=== PATIENT | male | born 1960 | race Asian ===

== ENCOUNTER 2022-06-29 00:51 | Inpatient (IN) | payer OTHER ==
[2022-06-29 02:19] LABS: EPI CELLS 3 /uL (0-25.1); HYALINE CASTS 0 /uL (0-3.1); URINE APPEARANCE CLEAR; URINE BACTERIA 2 /uL (0-1359); URINE BILIRUBIN NEGATIVE (NEGATIVE); URINE COLOR YELLOW; URINE GLUCOSE (UA) 3+ (NEGATIVE); URINE KETONE NEGATIVE (NEGATIVE); URINE LEUK ESTERASE NEGATIVE (NEGATIVE); URINE NITRITE NEGATIVE (NEGATIVE); URINE PROTEIN NEGATIVE (NEGATIVE); URINE RBC 4 /uL (0-23.9); URINE UROBILINOGEN 0.2 mg/dL (0.2-1.0); URINE WBC 2 /uL (0-25.8)
[2022-06-29] MEDS ORDERED: ACETAMINOPHEN 500 MG TABLET (FP) PO ONE (03:05)
[2022-06-29] MEDS ORDERED: ACETAMINOPHEN 325 MG TABLET (FP) ONE (03:15)
[2022-06-29 03:41] LABS: BASO % 0.4 % (0-2.0); EOS % 0.7 % (0-4.5); HEMATOCRIT 43.7 % (35.4-49); HEMOGLOBIN 15.2 GM/dL (11.7-16.9); LYMPH % 15.9 % (8-40); MCH 31.2 pg (25.7-33.7); MCHC 34.7 g/dl (32.0-35.9); MEAN CELL VOLUME 89.9 fl (80-96); MEAN PLT VOLUME 9.4 fl (7.5-11.1); MONO % 9.3 % (3.8-10.2); NEUT % 73.7 % (42.8-82.8); PLATELET COUNT 205 10^3/uL (134-434); RBC 4.87 M/mm3 (4.00-5.60); RDW 13.2 % (11.9-15.9); WHITE BLOOD COUNT 9.9 K/mm3 (4.0-10.0)
[2022-06-29 04:08] LABS: CALCIUM 9.6 mg/dL (8.5-10.1)
[2022-06-29 04:12] LABS: CREATININE 1.8 mg/dL (0.55-1.3)
[2022-06-29 04:14] LABS: TOT PROT 7.5 g/dl (6.4-8.2)
[2022-06-29] MEDS ORDERED: CEFTRIAXONE 1 GM in DEXTROSE 5%-WATER - 50 ML IVPB ONE (04:19)
[2022-06-29] MEDS ORDERED: CEFTRIAXONE 1 GM/50 ML BAG ONE (04:34)
[2022-06-29] MEDS ORDERED: morphine CARPU-JECT 2 MG/1 ML DISP.SYRIN IVPUSH ONE (04:47)
[2022-06-29] MEDS ORDERED: SODIUM CHLORIDE 0.9% 500 ML INFUS.BAG IV ONE (04:50)
[2022-06-29] MEDS ORDERED: TAMSULOSIN HCL 0.4 MG CAP PO ONE (09:08)
[2022-06-29] MEDS ORDERED: TAMSULOSIN HCL 0.4 MG CAP ONE (09:53)
[2022-06-29] MEDS: SODIUM CHLORIDE 1,000 ML IV SCH (09:58)
[2022-06-29] MEDS ORDERED: ACETAMINOPHEN 325 MG TABLET (FP) PO ONE (13:30)
[2022-06-29] MEDS ORDERED: morphine SULFATE 4 MG/ML VIAL IVPUSH ONE (13:52)
[2022-06-29] MEDS: TAMSULOSIN HCL 0.4 MG CAP PO SCH (16:52)
[2022-06-29] MEDS ORDERED: ACETAMINOPHEN 325 MG TABLET (FP) PO PRN (17:00)
[2022-06-29] MEDS ORDERED: ACETAMINOPHEN 1000 MG/100 ML BAG IVPB PRN (19:00)
[2022-06-29] MEDS: ROSUVASTATIN CA 10 MG TABLET PO SCH (22:17)
[2022-06-30 08:51] LABS: BASO % 0.2 % (0-2.0); EOS % 0.3 % (0-4.5); HEMATOCRIT 33.5 % (35.4-49); HEMOGLOBIN 11.9 GM/dL (11.7-16.9); LYMPH % 14.8 % (8-40); MCH 31.7 pg (25.7-33.7); MCHC 35.4 g/dl (32.0-35.9); MEAN CELL VOLUME 89.6 fl (80-96); MONO % 9.8 % (3.8-10.2); NEUT % 74.9 % (42.8-82.8); PLATELET COUNT 151 10^3/uL (134-434); RBC 3.74 M/mm3 (4.00-5.60); RDW 12.8 % (11.9-15.9); WHITE BLOOD COUNT 8.7 K/mm3 (4.0-10.0)
[2022-06-30 09:16] LABS: BLOOD UREA NITROGEN 16.5 mg/dL (7-18)
[2022-06-30 09:20] LABS: CREATININE 1.3 mg/dL (0.55-1.3)
[2022-06-30 09:21] LABS: BILIRUBIN,TOTAL 1.3 mg/dL (0.2-1)
[2022-06-30 09:28] LABS: ALBUMIN 2.9 g/dl (3.4-5.0); CALCIUM 7.7 mg/dL (8.5-10.1)
[2022-06-30] MEDS: TAMSULOSIN HCL 0.4 MG CAP PO SCH (09:39)
[2022-06-30] MEDS: SODIUM CHLORIDE 1,000 ML IV SCH ×2 (09:48→12:09)
[2022-06-30] MEDS ORDERED: morphine SULFATE 4 MG/ML VIAL IM PRN (14:49)
[2022-06-30] MEDS ORDERED: morphine SULFATE 4 MG/ML VIAL IVPUSH ONE (19:00)
[2022-06-30] MEDS: DOCUSATE SODIUM 100 MG CAPSULE (FP) PO SCH (21:56)
[2022-06-30] MEDS: ROSUVASTATIN CA 10 MG TABLET PO SCH (21:56)
[2022-07-01] MEDS: SODIUM CHLORIDE 1,000 ML IV SCH ×2 (03:45→16:49)
[2022-07-01] MEDS: TAMSULOSIN HCL 0.4 MG CAP PO SCH (09:40)
[2022-07-01] MEDS: DOCUSATE SODIUM 100 MG CAPSULE (FP) PO SCH ×2 (09:40→21:34)
[2022-07-01 10:06] LABS: EPI CELLS 1 /uL (0-25.1); HYALINE CASTS 0 /uL (0-3.1); URINE APPEARANCE CLOUDY; URINE BACTERIA 3 /uL (0-1359); URINE BILIRUBIN NEGATIVE (NEGATIVE); URINE COLOR YELLOW; URINE GLUCOSE (UA) 3+ (NEGATIVE); URINE KETONE 1+ (NEGATIVE); URINE LEUK ESTERASE NEGATIVE (NEGATIVE); URINE NITRITE NEGATIVE (NEGATIVE); URINE PROTEIN TRACE (NEGATIVE); URINE RBC 96 /uL (0-23.9); URINE UROBILINOGEN 0.2 mg/dL (0.2-1.0); URINE WBC 4 /uL (0-25.8)
[2022-07-01] MEDS: morphine SULFATE 4 MG/ML VIAL IVPUSH PRN ×2 (10:46→16:47)
[2022-07-01 10:56] LABS: YEAST NONE SEEN (NEGATIVE)
[2022-07-01 10:57] LABS: URINE CRYSTALS 20-25 /hpf
[2022-07-01 15:18] VITALS: BMI 26.0
[2022-07-01 17:30] LABS: CALCIUM 8.5 mg/dL (8.5-10.1)
[2022-07-01 17:31] LABS: ALBUMIN 3.1 g/dl (3.4-5.0); BLOOD UREA NITROGEN 18.7 mg/dL (7-18); MAGNESIUM 2.2 mg/dL (1.8-2.4)
[2022-07-01 17:34] LABS: CREATININE 1.3 mg/dL (0.55-1.3)
[2022-07-01 17:36] LABS: BILIRUBIN,TOTAL 0.9 mg/dL (0.2-1); TOT PROT 6.3 g/dl (6.4-8.2)
[2022-07-01] MEDS: metFORMIN HCL 500 MG TABLET (FP) PO SCH (21:34)
[2022-07-01] MEDS: ROSUVASTATIN CA 10 MG TABLET PO SCH (21:35)
[2022-07-01] MEDS: sitaGLIPtin PHOSPHATE 50 MG TABLET PO SCH (21:35)
[2022-07-02] MEDS: SODIUM CHLORIDE 1,000 ML IV SCH ×2 (05:40→19:38)
[2022-07-02] MEDS: metFORMIN HCL 500 MG TABLET (FP) PO SCH ×2 (09:24→21:36)
[2022-07-02] MEDS: DOCUSATE SODIUM 100 MG CAPSULE (FP) PO SCH ×2 (09:25→21:36)
[2022-07-02] MEDS: sitaGLIPtin PHOSPHATE 50 MG TABLET PO SCH ×2 (09:25→21:36)
[2022-07-02] MEDS: TAMSULOSIN HCL 0.4 MG CAP PO SCH (09:25)
[2022-07-02] MEDS: morphine SULFATE 4 MG/ML VIAL IVPUSH PRN (09:32)
[2022-07-02 10:45] LABS: HEMATOCRIT 36.3 % (35.4-49); HEMOGLOBIN 12.9 GM/dL (11.7-16.9); MCH 31.8 pg (25.7-33.7); MCHC 35.5 g/dl (32.0-35.9); MEAN CELL VOLUME 89.6 fl (80-96); MEAN PLT VOLUME 9.7 fl (7.5-11.1); PLATELET COUNT 184 10^3/uL (134-434); RBC 4.05 M/mm3 (4.00-5.60); RDW 13.3 % (11.9-15.9); WHITE BLOOD COUNT 7.2 K/mm3 (4.0-10.0)
[2022-07-02 11:08] LABS: ALBUMIN 3.2 g/dl (3.4-5.0); BLOOD UREA NITROGEN 16.3 mg/dL (7-18); CALCIUM 8.4 mg/dL (8.5-10.1)
[2022-07-02 11:09] LABS: BILIRUBIN,TOTAL 1.6 mg/dL (0.2-1); CREATININE 1.1 mg/dL (0.55-1.3)
[2022-07-02 11:10] LABS: TOT PROT 6.6 g/dl (6.4-8.2)
[2022-07-02 11:11] LABS: URIC ACID 4.5 mg/dL (2.6-7.2)
[2022-07-02] MEDS ORDERED: ONDANSETRON 4 MG/2 ML VIAL IVPUSH PRN (14:31)
[2022-07-02] MEDS ORDERED: PROMETHAZINE HCL 25 MG/1 ML VIAL IVPB PRN (14:31)
[2022-07-02] MEDS ORDERED: MIDAZOLAM HCL 2 MG/2 ML SINGLE DOSE VIAL ONE (14:40)
[2022-07-02] MEDS ORDERED: PROPOFOL 20 ML ONE (14:40)
[2022-07-02] MEDS ORDERED: LIDOCAINE HCL/PF 2% SDV 5ML VIAL ONE (14:41)
[2022-07-02] MEDS ORDERED: GLYCOPYRROLATE 0.2 MG/1 ML VIAL ONE (14:42)
[2022-07-02] MEDS ORDERED: SODIUM CHLORIDE 0.9% P/F 10 ML VIAL IJ ONE (14:50)
[2022-07-02] MEDS ORDERED: ceFAZolin SODIUM 1 GM VIAL ONE (14:50)
[2022-07-02] MEDS ORDERED: ceFAZolin SODIUM 1 GM VIAL IVPB ONE (14:52)
[2022-07-02] MEDS ORDERED: ONDANSETRON 4 MG/2 ML VIAL ONE (14:57)
[2022-07-02] MEDS ORDERED: DEXAMETHASONE SOD PHOSPHATE 4 MG/1 ML VIAL ONE (14:57)
[2022-07-02] MEDS ORDERED: KETOROLAC TROMETHAMINE 30 MG/1 ML VIAL ONE (14:57)
[2022-07-02] MEDS ORDERED: morphine SULFATE 4 MG/ML VIAL IVPUSH PRN (15:57)
[2022-07-02] MEDS: LACTATED RINGERS SOLUTION 1,000 ML IV SCH (17:34)
[2022-07-02] MEDS: ROSUVASTATIN CA 10 MG TABLET PO SCH (21:36)
[2022-07-03] MEDS: LACTATED RINGERS SOLUTION 1,000 ML IV SCH ×3 (01:19→21:16)
[2022-07-03 08:39] LABS: BASO % 0.2 % (0-2.0); EOS % 0.5 % (0-4.5); HEMATOCRIT 35.7 % (35.4-49); HEMOGLOBIN 12.6 GM/dL (11.7-16.9); MCH 31.4 pg (25.7-33.7); MCHC 35.3 g/dl (32.0-35.9); MEAN PLT VOLUME 9.5 fl (7.5-11.1); MONO % 9.2 % (3.8-10.2); NEUT % 74.1 % (42.8-82.8); PLATELET COUNT 221 10^3/uL (134-434); RBC 4.02 M/mm3 (4.00-5.60); RDW 12.8 % (11.9-15.9); WHITE BLOOD COUNT 7.8 K/mm3 (4.0-10.0)
[2022-07-03 08:58] VITALS: RESP 18
[2022-07-03 09:01] LABS: CALCIUM 8.6 mg/dL (8.5-10.1)
[2022-07-03 09:02] LABS: BLOOD UREA NITROGEN 21.8 mg/dL (7-18)
[2022-07-03 09:04] LABS: CREATININE 1.1 mg/dL (0.55-1.3)
[2022-07-03 09:06] LABS: BILIRUBIN,TOTAL 0.8 mg/dL (0.2-1); TOT PROT 6.6 g/dl (6.4-8.2)
[2022-07-03] MEDS: metFORMIN HCL 500 MG TABLET (FP) PO SCH ×2 (09:26→21:16)
[2022-07-03] MEDS: DOCUSATE SODIUM 100 MG CAPSULE (FP) PO SCH ×2 (09:26→21:17)
[2022-07-03] MEDS: TAMSULOSIN HCL 0.4 MG CAP PO SCH (09:26)
[2022-07-03] MEDS: sitaGLIPtin PHOSPHATE 50 MG TABLET PO SCH ×2 (09:27→21:17)
[2022-07-03] MEDS: ROSUVASTATIN CA 10 MG TABLET PO SCH (21:17)
[2022-07-04] MEDS: LACTATED RINGERS SOLUTION 1,000 ML IV SCH ×2 (04:30→13:15)
[2022-07-04] MEDS: metFORMIN HCL 500 MG TABLET (FP) PO SCH (09:41)
[2022-07-04] MEDS: sitaGLIPtin PHOSPHATE 50 MG TABLET PO SCH (09:41)
[2022-07-04] MEDS: TAMSULOSIN HCL 0.4 MG CAP PO SCH (09:41)
[2022-07-04] MEDS: DOCUSATE SODIUM 100 MG CAPSULE (FP) PO SCH ×2 (09:41→09:44)
[2022-07-04 11:03] VITALS: BP 152/81; PULSE 61; TEMP 98.2
[2022-07-09 12:08] LABS: CA OXALATE MONOHYDR. 100 % (.); SIZE 2x2 mm (.); WEIGHT 6 mg (.)
== END 2022-07-04 15:25 | disposition home or self-care (01) | DRG 446 ==
LOC: JER 00:51 → JERBED 04:23 → J7W 04:46 → UNDOADMIN 04:46 → JERBED 08:36 → J7W 08:36 → J5S 10:59
PROVIDERS: ADMIT Internal Medicine; ATTEND Internal Medicine
PROC: 0TC78ZZ Extirpation of Matter from Left Ureter, Via Natural or Artificial Opening Endoscopic (ICD-10-PCS; 2022-07-02)
PROC: 0TJB8ZZ Inspection of Bladder, Via Natural or Artificial Opening Endoscopic (ICD-10-PCS; 2022-07-02)
PROC: BT1FZZZ Fluoroscopy of Left Kidney, Ureter and Bladder (ICD-10-PCS; 2022-07-02)
PROC: 0T777DZ Dilation of Left Ureter with Intraluminal Device, Via Natural or Artificial Opening (ICD-10-PCS; principal; 2022-07-02 12:45)
DX: N13.2 Hydronephrosis with renal and ureteral calculous obstruction (principal); E87.1 Hypo-osmolality and hyponatremia; N40.1 Benign prostatic hyperplasia with lower urinary tract symptoms; R33.8 Other retention of urine; I10 Essential (primary) hypertension; E78.5 Hyperlipidemia, unspecified; E11.9 Type 2 diabetes mellitus without complications; N17.9 Acute kidney failure, unspecified; E87.6 Hypokalemia
CPT/HCPCS: 0241U-QW; 36415; 71045-TC-FY; 74176-TC; 76000-TC-FY; 76775-TC; 76856-TC; 80053; 81003; 82360; 82962; 83735; 84550; 85025; 85027; 87086; 88108; 88300-TC; 93005; 93010; 94010; 94760; 99285-25; C1758; C1769; C2617

== ENCOUNTER 2022-08-27 04:18 | Day surgery (SDC) | payer OTHER ==
[2022-08-22 11:29] VITALS: BMI 28.3
[2022-08-27 09:47] VITALS: TEMP 97.5
[2022-08-27 10:08] VITALS: RESP 21
[2022-08-27 10:10] VITALS: BP 116/75; PULSE 87
[2022-08-27] MEDS ORDERED: SIMETHICONE 40 MG/0.6 ML BOTTLE ONE (11:03)
== END 2022-08-27 11:45 | disposition home or self-care (01) ==
LOC: JASU-ENDO 04:18
PROVIDERS: ATTEND Student in an Organized Health Care Education/Training Program
PROC: 0DBM8ZX Excision of Descending Colon, Via Natural or Artificial Opening Endoscopic, Diagnostic (ICD-10-PCS; 2022-08-27)
PROC: 0DBL8ZX Excision of Transverse Colon, Via Natural or Artificial Opening Endoscopic, Diagnostic (ICD-10-PCS; 2022-08-27)
PROC: 0DBH8ZX Excision of Cecum, Via Natural or Artificial Opening Endoscopic, Diagnostic (ICD-10-PCS; principal; 2022-08-27 09:00)
DX: Z12.11 Encounter for screening for malignant neoplasm of colon (principal); D12.0 Benign neoplasm of cecum; D12.3 Benign neoplasm of transverse colon; D12.4 Benign neoplasm of descending colon; I10 Essential (primary) hypertension; E11.9 Type 2 diabetes mellitus without complications; Z79.84 Long term (current) use of oral hypoglycemic drugs
CPT/HCPCS: 82962; 88305-TC